=== PATIENT | female | born 1990 | race American Indian/Alaskan Native ===

== ENCOUNTER 2018-03-17 16:23 | Emergency (ER) | payer OTHER ==
[2018-03-17] MEDS ORDERED: CATAPRES ONE (19:38)
[2018-03-17] MEDS ORDERED: DUONEB *Not for PRN Use IH ONE ×2 (19:38→19:50)
[2018-03-17] MEDS ORDERED: CATAPRES PO ONE (19:49)
[2018-03-17 19:51] VITALS: BP 198/129
[2018-03-17 20:55] LABS: Bilirubin,Urine NEG (Negative); Blood,Urine SM (Negative); Color,Urine Yellow (Yellow); Urobilinogen,Urine < 2.0 mg/dL (<2.0)
[2018-03-17 20:57] LABS: Protein,Urine >500 mg/dL (Negative)
[2018-03-17 21:21] LABS: Hematocrit 38.4 % (30.3-42.9); Hemoglobin 12.1 gm/dl (10.1-14.3); Mean Corpuscular HGB Conc 32 % (30-34); Mean Corpuscular Volume 78 fl (79-97); Platelet Count 218 K/mm3 (140-440); Red Cell Distribution Width 16.5 % (13.2-15.2)
[2018-03-17 21:25] LABS: Mean Corpuscular Hemoglobin 25 pg (28-32)
[2018-03-17 21:44] LABS: Calcium 8.3 mg/dL (8.4-10.2)
--- NOTE | 2018-03-17 22:57 | XRay Report ---
FINAL REPORT PROCEDURE: XR CHEST ROUTINE 2V TECHNIQUE: PA and lateral chest radiographs were obtained. CPT 15883 HISTORY: wheezing COMPARISON: No prior studies are available for comparison. FINDINGS: Heart: Normal. Mediastinum/Vessels: Normal. Lungs/Pleural space: There is extensive opacity throughout the right lung, compatible with pneumonia. No effusion or pneumothorax is seen. Bony thorax: A catheter overlies the right chest. Other: IMPRESSION: Extensive patchy opacity is seen throughout the right lung, which may be related to pneumonia.
== END 2018-03-18 03:13 | disposition left against medical advice (07) ==
LOC: ED 16:23
DX: R50.9 Fever, unspecified (principal); Z53.21 Procedure and treatment not carried out due to patient leaving prior to being seen by health care provider
CPT/HCPCS: 36415; 71046; 80048; 81001; 84703; 85027

== ENCOUNTER 2021-08-25 06:12 | Day surgery (SDC) | payer MEDICARE, OTHER ==
[2021-08-25 07:46] LABS: Basophils # (Auto) 0.2 K/mm3 (0.0-0.1); Basophils % (Auto) 2.2 % (0.0-1.8); Eosinophils # (Auto) 0.4 K/mm3 (0.0-0.4); Eosinophils % (Auto) 4.9 % (0.0-4.3); Hemoglobin 9.1 gm/dl (10.1-14.3); Lymphocytes # (Auto) 1.2 K/mm3 (1.2-5.4); Lymphocytes % (Auto) 16.8 % (13.4-35.0); Mean Corpuscular HGB Conc 30 % (30-34); Mean Corpuscular Volume 83 fl (79-97); Monocytes # (Auto) 0.6 K/mm3 (0.0-0.8); Monocytes % (Auto) 8.8 % (0.0-7.3); Platelet Count 228 K/mm3 (140-440); Red Blood Count 3.62 M/mm3 (3.65-5.03)
[2021-08-25 07:48] LABS: Red Cell Distribution Width 21.5 % (13.2-15.2)
[2021-08-25 07:56] LABS: INR 1.02 (0.87-1.13)
[2021-08-25 07:57] LABS: Partial Thromboplastin Time 35.3 Sec. (24.2-36.6)
[2021-08-25 07:58] LABS: Calcium 10.5 mg/dL (8.4-10.2)
[2021-08-25] MEDS ORDERED: SODIUM CHLORIDE 0.9% 500 ML 500 ML IV SCH (08:00)
[2021-08-25] MEDS ORDERED: MIDAZOLAM 2 MG/2 ML INJ ONE ×2 (08:53→10:49)
[2021-08-25] MEDS ORDERED: HEPARIN/NS 5000 UNIT/500ML 1,000 ML IR ONE (08:53)
[2021-08-25] MEDS ORDERED: fentaNYL 100 MCG/2 ML INJ ONE ×2 (08:53→10:49)
[2021-08-25] MEDS ORDERED: HEPARIN 10,000 UNITS/10 ML VIAL ONE (08:53)
[2021-08-25] MEDS ORDERED: NITROGLYCERIN SYRINGE 3 ML ONE (08:54)
[2021-08-25] MEDS ORDERED: LIDOCAINE (2%) 20 MG/1 ML VIAL 20 ML MDV INFILTRATI ONE ×2 (08:54→09:41)
[2021-08-25] MEDS ORDERED: ceFAZolin/STERILE WATER 2 GM/20 ML SYRINGE IV ONE (09:10)
[2021-08-25] MEDS ORDERED: MIDAZOLAM 2 MG/2 ML INJ IV ONE ×3 (09:39→10:48)
[2021-08-25] MEDS ORDERED: fentaNYL 100 MCG/2 ML INJ IV ONE ×4 (09:39→10:48)
[2021-08-25] MEDS ORDERED: HEPARIN 10,000 UNITS/10 ML VIAL IV ONE ×3 (09:55→11:22)
[2021-08-25] MEDS ORDERED: SODIUM CHLORIDE 0.9% 1000 ML 1,000 ML ONE (10:10)
[2021-08-25] MEDS ORDERED: NITROGLYCERIN DRIP 50 MG/250 ML BOTTLE ONE (10:11)
[2021-08-25] MEDS ORDERED: VERAPAMIL 5 MG/2 ML INJ ONE (10:12)
[2021-08-25] MEDS ORDERED: NITROGLYCERIN 600 MCG/3 ML SYRINGE UD ONE ×2 (11:14→11:32)
[2021-08-25] MEDS ORDERED: ALUM-MAG HYDROXIDE-SIMETHICONE 200-200-20MG/5ML ORAL LIQD 30 ML ONE (12:02)
--- NOTE | 2021-08-25 12:19 | Short Stay Summary ---
Short Stay Documentation Date of service: 08/25/21 Narrative H&P: See H&P - History H&P: obtained from office - Allergies and Medications Current Medications: Allergies No Known Allergies Allergy (Verified 08/25/21 07:13) Home Medications Medication Instructions Recorded Confirmed Last Taken Type Cinacalcet HCl [Sensipar] 30 mg PO DAILY 08/25/21 08/25/21 08/24/21 History 30 mg Clopidogrel [Plavix] 75 mg PO DAILY 08/25/21 08/25/21 08/24/21 History 75 mg Ferric Citrate (Nf) [Auryxia] 210 mg PO TID 08/25/21 08/25/21 08/24/21 History 210 mg Folic Acid [Folvite] 1 mg PO DAILY 08/25/21 08/25/21 08/24/21 History 1 mg Gabapentin 300 mg PO BID 08/25/21 08/25/21 08/24/21 History 300 mg Oxycodone HCl [roxiCODONE] 15 mg PO Q6H 08/25/21 08/25/21 08/24/21 History 15 mg Pantoprazole [Protonix TAB] 40 mg PO DAILY 08/25/21 08/25/21 08/24/21 History 40 mg calcitrioL [Rocaltrol] 0.5 mcg PO DAILY 08/25/21 08/25/21 08/24/21 History 0.5mcg Active Medications Sodium Chloride (Nacl 0.9% 500 Ml) 500 mls @ 50 mls/hr IV DIRECT RO - Brief post op/procedure progress note Date of procedure: 08/25/21 Pre-op diagnosis: Left Lower Extremity Critical Limb Ischemia Post-op diagnosis: same Procedure: 1. Ultrasound-Guided Access Right Common Femoral Artery 2. Diagnostic Aortogram (The Patient Has Clinical Change) 3. Diagnostic Left Lower Extremity Angiogram (The Patient Had a Clinical Change) 4. Atherectomy with Angioplasty of Left Posterior Tibial Artery With CSI Diamondback 1.25 Solid Orbital Atherectomy Catheter, 3.0-2.5 x 210 NanoCross Balloon, 3.5 x 100 Angiosculpt Balloon, and 4.0 x 150 IN.PACT Drug-Coated Balloon (x2) 4. Angioplasty of Left Anterior Tibial Artery with 3.0-2.5 x 210 NanoCross 5. Closure of Right Femoral Arteriotomy with Pro-[place] Closure Device 6. Radiologic Supervision with Interpretation 7. Monitored Moderate Sedation (Total Anesthesia Time: 117 Minutes) Anesthesia: local, other (Monitored Moderate Sedation) Surgeon: TARIQ HOFFMANN Estimated blood loss: minimal Pathology: none Condition: stable - Disposition Condition at discharge: Good Short Stay Discharge Plan Activity: other (No strenuous activity for 24 hours) Wound: remove dressing (In 24 hours) Special Instructions: other (Okay to shower and wash the wound with soap and water but do not soak in water for 2 weeks.) Follow up with: TARIQ HOFFMANN MD [Staff Physician] - 14 Days Forms: Post Arteriogram Instruct Prescriptions: Apixaban [Eliquis] 2.5 mg PO BID #60 tablet cilostazoL [Pletal] 100 mg PO BID #180 tablet
[2021-08-25] MEDS ORDERED: oxyCODONE /ACETAMINOPHEN 5-325MG TAB PO PRN (12:23)
--- NOTE | 2021-08-25 12:25 | Operative Report ---
Operative Report Operative Report: Date of Procedure: 08/25/2021 Pre-operative Diagnosis: Left Lower Extremity Critical Limb Ischemia Post-operative Diagnosis: Same Procedure(s): 1. Ultrasound-Guided Access Right Common Femoral Artery 2. Diagnostic Aortogram (The Patient Has Clinical Change) 3. Diagnostic Left Lower Extremity Angiogram (The Patient Had a Clinical Change) 4. Atherectomy with Angioplasty of Left Posterior Tibial Artery With CSI Diamondback 1.25 Solid Orbital Atherectomy Catheter, 3.0-2.5 x 210 NanoCross Balloon, 3.5 x 100 Angiosculpt Balloon, and 4.0 x 150 IN.PACT Drug-Coated Balloon (x2) 4. Angioplasty of Left Anterior Tibial Artery with 3.0-2.5 x 210 NanoCross 5. Closure of Right Femoral Arteriotomy with Pro-[place] Closure Device 6. Radiologic Supervision with Interpretation 7. Monitored Moderate Sedation (Total Anesthesia Time: 117 Minutes) Surgeon: Arthur Natarajan M.D. Production Leader: None Anesthesia: Local/Monitored Moderate Sedation Total Anesthesia Time: 117 Minutes EBL: Minimal Counts: Correct Complications: None Condition: Stable Specimen: None Indication: The patient is a 31-year-old female with a history of end-stage renal disease who is on hemodialysis through a right internal jugular permacath. She developed endocarditis and was found to have vegetations that likely embolized to her left lower extremity. She presented with gangrene involving her left first toe with ulcerations in the midfoot. She had a procedure performed at an outside facility however she had no significant improvement and presented for a second opinion as it was recommended that she undergo a left below-knee amputation. She is in need of a diagnostic angiogram with possible intervention. She was given the risk, benefits, and alternative procedures and consented to the procedure. Angiographic Findings: The diagnostic aortogram revealed that the aorta was patent without evidence of aneurysmal dilatation, thrombus, or flow-limiting stenosis. The left lower extremity angiogram revealed that the left common iliac artery, hypogastric artery, and external iliac artery were patent without evidence of thrombus or flow-limiting stenosis. The common femoral artery, profunda artery, SFA, and popliteal artery were all patent without evidence of thrombus or flow-limiting stenosis. The patient had three-vessel runoff however the peroneal artery became atretic and occluded in the mid calf. The anterior tibial artery originated rather proximally just below the knee and was diffusely disease with multiple areas of stenosis ranging from 40 to 60% in the proximal and mid segments with approximately 85% stenosis in the distal segment and occlusion just above above the ankle. There was no reconstitution into the dorsalis pedis artery. The posterior tibial artery was diffusely diseased with 50 - 90% stenosis throughout its course and occluded just above the ankle. There were no pedal vessels within the foot. After intervention the posterior tibial artery was patent with less than 10% residual stenosis within the calf and was patent into the foot with flow into multiple collateral vessels that provided flow into the digital vessels. The anterior tibial artery was patent with less than 10% residual stenosis and flowed into the mid dorsalis pedis artery was occluded but provided collateral flow into vessels which eventually flowed into digital vessels as well. Description of Procedure: The patient was brought to the [facility] and laid in supine position. After timeout was performed her right groin was prepped and draped in normal sterile fashion. Ultrasound was used to identify the right common femoral artery and confirm patency. Once patency was confirmed the overlying skin and soft tissue was anesthetized with lidocaine. An 11 blade was used to make a small stab incision and then a curved hemostat was used to bluntly dissect down to the anterior surface of the right common femoral artery using ultrasound guidance. A 21-gauge micropuncture needle was used with ultrasound guidance to enter the right common femoral artery and a 0.018 micropuncture wire was advanced to the artery. The needle was removed and a micropuncture sheath was placed by Seldinger technique. The dilator and wire were removed and a 0.035 J-wire was advanced to the aorta. The micropuncture sheath was removed and a 5 [place] sheath was placed by Seldinger technique. An Omni Flush catheter was advanced to the aorta and after removing the wire a diagnostic aortogram was performed with the previously described findings. The 0.035 Bentson wire was advanced into the Omni Flush catheter and the wire and catheter were advanced up and over the bifurcation and the diagnostic left lower extremity angiogram was performed with the previously described findings. I advanced the Bentson wire into the below-knee popliteal artery and exchanged to 5 [place]ian sheath for 6 [place] 90 cm destination sheath by Seldinger technique. At this point the patient was systemically heparinized with 5000 as of heparin IV and this was redosed with 1000 units of heparin IV, every 45 minutes, until the completion of the case. I used a Navicross catheter and a 0.018 V18 wire and was able to traverse the areas of stenosis and occlusion within the posterior tibial artery and reenter the pedal vessel. This was confirmed by angiogram. I exchanged the V 18 wire for a 0.014 Viper Wire and performed atherectomy of the posterior tibial artery within the calf using a CSI Diamondback 1.25 Solid Orbital Atherectomy Catheter. I then performed angioplasty of the entire artery including the pedal portion of the vessel using a 3.0-2.5 x 210 Nanocross Balloon followed by angioplasty with the 3.5 x 100 Angisculpt Balloon. Following this angioplasty I exchanged the Viper Wire for a 0.035 [place] Advantage Wire and then performed angioplasty of the posterior tibial artery using a 4.0 x 150 IN.PACT Drug-Coated Balloon (x2) which resulted in less than 10% residual stenosis with somewhat sluggish flow in the artery so I injected a total of 600 mcg of nitroglycerin in the artery was then resulted in brisk flow of contrast through the artery and into the pedal vessel. The then flowed into collateral vessels which filled many of the digital vessels. I then used the Navicross catheter and V 18 wire to jean ulate the anterior tibial artery and was able to cross the occluded distal portion of the artery and enter into the occluded dorsalis pedis artery. I was unable to advance the wire into the midportion of the artery and into a collateral vessel. This was confirmed by angiogram. I exchanged the V 18 wire for 0.014 Choice PT wire. I performed angioplasty of the dorsalis pedis artery as well as the entire anterior tibial artery using a 3.0-2.5 x 210 NanoCross Balloon. I injected 600 mcg of nitroglycerin within the artery and this resulted in less than 10% residual stenosis and brisk flow of contrast through both the anterior tibial artery as well as the posterior tibial artery and into the foot as well as the digital vessels. At this point the Choice PT wire was removed and the sheath was pulled back into the right external iliac artery. I advanced the J-wire into the aorta and after removing the sheath used a Pro- glide closure device to close the right femoral arteriotomy. A sterile dressing was then applied to the right femoral access site and the patient was transported to the recovery area in stable condition.
[2021-08-25] MEDS ORDERED: APIXABAN 2.5 MG TAB PO SCH (13:00)
[2021-08-25 14:13] VITALS: BP 122/87
== END 2021-08-25 14:38 | disposition home or self-care (01) ==
LOC: CATHLABREC 06:12
PROVIDERS: ATTEND Surgery Vascular Surgery
DX: I70.211 Atherosclerosis of native arteries of extremities with intermittent claudication, right leg (principal); I12.0 Hypertensive chronic kidney disease with stage 5 chronic kidney disease or end stage renal disease; N18.6 End stage renal disease; Z99.2 Dependence on renal dialysis; Z86.16 Personal history of COVID-19; Z79.899 Other long term (current) drug therapy; Z98.890 Other specified postprocedural states
CPT/HCPCS: 36415; 37229; 37232; 75625; 75710; 76937; 80048; 85025; 85610; 85730; 96374; 99156; 99157; C1724; C1725; C1760; C1769; C1887; C2623; J0690; J1642; J1644; J1815; J2250; J3010; J3490; J7030; J7040; Q0162; Q9967

== ENCOUNTER 2022-05-09 15:45 | Emergency (ER) | payer MEDICARE ==
[2022-05-09 16:45] VITALS: BP 146/87
== END 2022-05-09 17:00 | disposition left against medical advice (07) ==
LOC: ED 15:45
DX: B04 Monkeypox (principal); Z53.21 Procedure and treatment not carried out due to patient leaving prior to being seen by health care provider